=== PATIENT | female | born 1970 | race African-American/Black ===

== ENCOUNTER 2020-07-25 16:43 | Observation (INO) | payer MEDICAID ==
--- NOTE | 2020-07-25 17:22 | ER Document Report ---
ED Medical Screen (RME) - General Chief Complaint: Chest Pain Stated Complaint: CHEST PAIN Time Seen by Provider: 07/25/20 17:06 Mode of Arrival: Wheelchair Information source: Patient Notes: 50-year-old female presented to ED for complaint of chest pain that was a 5 out of 5 earlier. She states it was very tight with soreness to the left wrist. She states at first she thought she was having stroke symptoms. She states she was arguing with her daughters outside and then went inside and then she and her significant other went to the battery place. While she was there her chest got extremely tight. She came into the emergency room stating that she was having a stroke symptoms because she had had a stroke a year ago. When I asked her what she was here for she stated she was having chest pain.. Later when I saw her in the triage room she states the pain was better it was now a 3 out of 5. She was able to converse much easier. She was much more alert. I have ordered blood ur ine chest x-ray and monitoring. I have greeted and performed a rapid initial assessment of this patient. A comprehensive ED assessment and evaluation of the patient, analysis of test results and completion of medical decision making process will be conducted by an additional ED providers. - Related Data Allergies/Adverse Reactions: No Known Allergies Allergy (Verified 07/25/20 17:06) Home Medications: BP meds Past Medical History - Social History Frequency of alcohol use: None Drug Abuse: None Physical Exam - Vital signs Vitals: Temp Pulse Resp BP Pulse Ox 99.5 F 88 18 153/95 H 96 07/25/20 16:58 07/25/20 16:58 07/25/20 16:58 07/25/20 16:58 07/25/20 16:58 Course - Vital Signs Vital signs: Temp Pulse Resp BP Pulse Ox 99.5 F 88 18 153/95 H 96 07/25/20 16:58 07/25/20 16:58 07/25/20 16:58 07/25/20 16:58 07/25/20 16:58
[2020-07-25 17:41] LABS: ABSOLUTE BASOPHILS # (AUTO) 0.1 10^3/uL (0.0-0.2); ABSOLUTE EOSINOPHILS # (AUTO) 0.1 10^3/uL (0.0-0.6); ABSOLUTE LYMPHOCYTES (AUTO) 1.9 10^3/uL (0.5-4.7); ABSOLUTE MONOCYTES (AUTO) 0.7 10^3/uL (0.1-1.4); BASOPHILS % (AUTO) 0.6 % (0-2); EOSINOPHILS % (AUTO) 0.7 % (0-6); HEMATOCRIT 29.6 % (36.0-47.0); HEMOGLOBIN 9.2 g/dL (12.0-15.5); LYMPHOCYTES % (AUTO) 17.9 % (13-45); MEAN CORPUSCULAR HEMOGLOBIN 20.4 pg (27.0-33.4); MEAN CORPUSCULAR VOLUME 66 fl (80-97); MONOCYTES % (AUTO) 6.1 % (3-13); PLATELET COUNT 398 10^3/uL (150-450); RED BLOOD COUNT 4.48 10^6/uL (3.72-5.28); RED CELL DISTRIBUTION WIDTH 19.8 % (11.5-14.0); SEGMENTED NEUTROPHILS % (AUTO) 74.7 % (42-78); TOTAL CELLS COUNTED % (AUTO) 100 %; WHITE BLOOD COUNT 10.7 10^3/uL (4.0-10.5)
--- NOTE | 2020-07-25 17:50 | RADIOLOGY REPORT (SQ) ---
EXAM DESCRIPTION: CHEST 2 VIEWS IMAGES COMPLETED DATE/TIME: 07/25/2020 5:42 pm REASON FOR STUDY: chest pain COMPARISON: None. EXAM PARAMETERS: NUMBER OF VIEWS: two views TECHNIQUE: Digital Frontal and Lateral radiographic views of the chest acquired. RADIATION DOSE: NA LIMITATIONS: none FINDINGS: LUNGS AND PLEURA: No opacities, masses or pneumothorax. No pleural effusion. MEDIASTINUM AND HILAR STRUCTURES: No masses or contour abnormalities. HEART AND VASCULAR STRUCTURES: Cardiomegaly. No evidence for failure. BONES: Mild dextroconvex scoliosis thoracic spine. HARDWARE: None in the chest. OTHER: No other significant finding. IMPRESSION: 1. No acute pulmonary findings. 2. Cardiomegaly. No evidence for failure. TECHNICAL DOCUMENTATION: JOB ID: [id number] 2010 [employer]- All Rights Reserved Reading location - IP/workstation name: [email or web address]
[2020-07-25 17:51] LABS: APPEARANCE,URINE SLIGHTLY-CLOUDY; BILIRUBIN,URINE NEGATIVE (NEGATIVE); COLOR,URINE YELLOW; GLUCOSE, URINE NEGATIVE (NEGATIVE); INTERNATIONAL RATION (INR) 0.95; KETONES,URINE NEGATIVE (NEGATIVE); LEUKOCYTE ESTERASE,URINE NEGATIVE (NEGATIVE); NITRITE,URINE NEGATIVE (NEGATIVE); PROTEIN,URINE 30 mg/dL (NEGATIVE); PROTHROMBIN TIME 12.8 SEC (11.4-15.4); URINE SPECIFIC GRAVITY 1.017; UROBILINOGEN,URINE NEGATIVE mg/dL (<2.0)
[2020-07-25 17:52] LABS: PARTIAL THROMBOPLASTIN TIME 29.4 SEC (23.5-35.8)
[2020-07-25 18:16] LABS: ALBUMIN 4.2 g/dL (3.5-5.0); ALKALINE PHOSPHATASE 74 U/L (38-126); ANION GAP 8 (5-19); ASPARTATE AMINO TRANSFERASE 18 U/L (14-36); BILIRUBIN,DIRECT 0.2 mg/dL (0.0-0.4); BILIRUBIN,TOTAL 0.5 mg/dL (0.2-1.3); BLOOD UREA NITROGEN 13 mg/dL (7-20); CALCIUM 9.8 mg/dL (8.4-10.2); CARBON DIOXIDE 32 mmol/L (22-30); CHLORIDE 99 mmol/L (98-107); CREATINE KINASE 96 U/L (30-135); GLUCOSE 101 mg/dL (75-110); POTASSIUM 3.3 mmol/L (3.6-5.0); TOTAL PROTEIN 7.3 g/dL (6.3-8.2)
[2020-07-25 21:04] LABS: URINE AMPHETAMINES SCREEN NEGATIVE; URINE BARBITURATES SCREEN NEGATIVE; URINE BENZODIAZEPINES SCREEN NEGATIVE; URINE COCAINE SCREEN NEGATIVE; URINE MARIJUANA (THC) SCREEN NEGATIVE; URINE METHADONE SCREEN NEGATIVE; URINE PHENCYCLIDINE SCREEN NEGATIVE
--- NOTE | 2020-07-25 21:05 | ER Document Report ---
ED Cardiac - General Chief Complaint: Chest Pain Stated Complaint: CHEST PAIN Time Seen by Provider: 07/25/20 17:06 Mode of Arrival: Wheelchair - HPI Patient complains to provider of: Chest tightness Was the onset of pain: Sudden Quality of pain: Tightness Chest pain radiation location: Left arm Severity now: None Cardiac risk factors: Hypertension, + Family history Positive cardiac history: No Associated symptoms: Headache, Lightheaded. denies: Abdominal pain, Back pain, Weakness Exacerbated by: Denies Relieved by: Nothing Similar symptoms previously: Yes Notes: Patient is a 50-year-old female with a past medical history of CVA and hypertension who presents with chest pain. Patient states she has had intermittent chest pain for several days. Today, she was arguing with her family member and developed chest pain again. She states today it was worse and felt like pressure. She had some pain radiating to her left arm. She denies any nausea or vomiting. No abdominal pain. States that she is from [place] and drove here several days ago. She has never had a blood clot. - Related Data Allergies/Adverse Reactions: No Known Allergies Allergy (Verified 07/25/20 17:06) Home Medications: BP meds Past Medical History - General Information source: Patient - Social History Smoking Status: Never Smoker Frequency of alcohol use: None Drug Abuse: None Family History: Reviewed & Not Pertinent Review of Systems - Review of Systems Notes: CONSTITUTIONAL: No fever, fatigue or weight loss. SKIN: No rash. HENT: No congestion, ear pain, or sore throat. EYES: No recent vision problems or eye pain. ENDOCRINE: No thyroid problems. No polyuria or polydipsia. CARDIOVASCULAR: Positive for chest pain RESPIRATORY: No cough, shortness of breath, congestion, or wheezing. GASTROINTESTINAL: No abdominal pain, nausea, vomiting, bloody stools or diarrhea. GENITOURINARY: No dysuria. MUSCULOSKELETAL: No joint pain or swelling. LYMPHATIC: No swollen glands. NEUROLOGIC: No seizures. No headache, focal weakness or sensory changes. HEMATOLOGIC: No unusual bruising or bleeding. PSYCHIATRIC: No depression or anxiety. Physical Exam - Vital signs Vitals: Temp Pulse Resp BP Pulse Ox 99.5 F 88 18 153/95 H 96 07/25/20 16:58 07/25/20 16:58 07/25/20 16:58 07/25/20 16:58 07/25/20 16:58 - Notes Notes: VITAL SIGNS: Within normal limits. GENERAL: No acute distress, non-toxic appearance. HEAD: Normal with no signs of head trauma. EYES: PERRLA, EOMI, conjunctiva normal, no discharge. EARS: Hearing grossly intact. NOSE: Normal. THROAT: Oropharynx is normal. NECK: Normal range of motion, no tenderness, supple, no lymphadenopathy, No ad enopathy, no JVD. CHEST: Clear breath sounds bilaterally. No wheezes, rales, or rhonchi. CARDIAC: Regular rate and rhythm. S1 and S2, without murmurs, gallops, or rubs. VASCULAR: No Edema. Peripheral pulses normal. ABDOMEN: Normal and soft with no tenderness, no masses or pulsatile masses. GASTROINTESTINAL: Bowel sounds normal GENITOURINARY: Normal, No tenderness LYMPATHTIC: No lymphadenopathy noted. MUSCULOSKELETAL: Good range of motion of all major joints. Extremities without clubbing, cyanosis or edema. NEUROLOGICAL: Alert and oriented x 3. No focal sensory or strength deficits. Speech normal. Follows commands appropriately. PSYCHIATRIC: Normal Affect, judgement and mood. SKIN: Normal appearance with no rashes or lesions. Course - Re-evaluation Re-evalutation: Heart Score is 4 07/25/20 22:04 07/26/20 01:14 Patient states she had one episode of chest pain again in the ER. Currently she is chest pain-free. Patient was sent for a CTA as she had a mildly elevated d- dimer and traveled recently. Unfortunately, CTA was nondiagnostic. I did discuss this with the patient. Because of her heart score, I did offer her admission to the hospital for cardiac work-up and she was in agreement. Patient was given aspirin and potassium. She will be admitted to the hospitalist. - Vital Signs Vital signs: Temp Pulse Resp BP Pulse Ox 99.5 F 88 19 140/62 H 94 07/25/20 16:58 07/25/20 16:58 07/26/20 00:00 07/25/20 22:32 07/25/20 21:00 - Laboratory Result Diagrams: 07/25/20 17:22 07/25/20 17:22 Laboratory results interpreted by me: 07/25/20 07/25/20 07/25/20 17:22 17:22 17:22 WBC 10.7 H Hgb 9.2 L Hct 29.6 L MCV 66 L MCH 20.4 L MCHC 31.0 L RDW 19.8 H D-Dimer Potassium 3.3 L Carbon Dioxide 32 H Urine Protein 30 H 07/25/20 21:11 WBC Hgb Hct MCV MCH MCHC RDW D-Dimer 0.57 H Potassium Carbon Dioxide Urine Protein - Diagnostic Test Radiology reviewed: Image reviewed, Reports reviewed - EKG Interpretation by Me EKG shows normal: Sinus rhythm Rate: Normal Rhythm: NSR When compared to previous EKG there are: Previous EKG unavailable Additional EKG results interpreted by me: 07/25/20 20:53 EKG interpreted by me. Sinus rhythm at a rate of 80. QTc 425. Acute ST changes. No previous EKG available for comparison. Discharge - Discharge Clinical Impression: Chest pain Qualifiers: Chest pain type: unspecified Qualified Code(s): R07.9 - Chest pain, unspecified Condition: Stable Disposition: ADMITTED OBSERVATION Unit Admitted: Telemetry
--- NOTE | 2020-07-25 23:31 | RADIOLOGY REPORT (SQ) ---
CLINICAL INDICATION: chest pain. . TECHNIQUE: CT arteriography was obtained of the chest with multiplanar MIP and/or 3-D angiographic reconstructions. This exam was performed according to our departmental dose-optimization program, which includes automated exposure control, adjustment of the mA and/or kV according to patient size and/or use of iterative reconstruction techniques. COMPARISON: None. CORRELATION: None. FINDINGS: Nondiagnostic contrast bolus. Average Hounsfield unit measurement within main pulmonary artery segment of 50. Artifact from venous opacification. There is a dilute contrast bolus. This is nondiagnostic for evaluation of pulmonary embolus. Thoracic aorta is of normal caliber. The heart is of normal size. No pericardial effusion. No bulky mediastinal adenopathy. The lungs are grossly clear. No consolidation or edema. No effusion or pneumothorax. Visualized abdominal contents demonstrate hepatic steatosis.. Visualized bones are unremarkable. IMPRESSION: Artifact the patient's arms. Dilute contrast bolus. Study is nondiagnostic for the evaluation of pulmonary embolus. Lungs grossly clear .
[2020-07-25] MEDS ORDERED: ASPIRIN 325 MG TABLET PO ONE (23:51)
[2020-07-25] MEDS ORDERED: POTASSIUM CHLORIDE 10 MEQ TABLET.ER PO ONE (23:53)
[2020-07-26] MEDS ORDERED: ATORVASTATIN CALCIUM 40 MG TABLET PO ONE (00:31)
[2020-07-26] MEDS ORDERED: MAG HYDROX/AL HYDROX/SIMETH SUSP 30 ML UDCUP PO PRN (00:35)
[2020-07-26] MEDS ORDERED: PROMETHAZINE HCL INJ 25 MG/1 ML VIAL IV PRN (00:35)
[2020-07-26] MEDS ORDERED: ACETAMINOPHEN 325 MG TABLET PO PRN (00:35)
[2020-07-26] MEDS ORDERED: MAGNESIUM HYDROXIDE SUSP 30 ML UDCUP PO PRN (00:35)
[2020-07-26] MEDS ORDERED: TRAMADOL HCL 50 MG TABLET PO PRN (00:39)
[2020-07-26] MEDS ORDERED: LORAZEPAM 1 MG TABLET PO PRN (00:39)
[2020-07-26] MEDS ORDERED: NITROGLYCERIN 0.4 MG/TAB 25 TAB/BOTTLE SL PRN (00:39)
[2020-07-26] MEDS ORDERED: ATORVASTATIN CALCIUM 20 MG TABLET ONE (00:44)
--- NOTE | 2020-07-26 00:51 | PDOC H&P ---
History of Present Illness Admission Date/PCP: 07/26/20 00:27 Patient complains of: Chest pain History of Present Illness: ZAINAB MELTON is a 50 year old female with a BMI of 49.6 who reports chest discomfort over the last several days. The episodes tended to last mere minutes and resolved on their own. Today's episode was noticeably more severe. The chest pressure was central. She does not report that it radiates to the neck, jaw or left arm. She states that she felt palpitations, lightheaded, dizziness and short of breath but was not diaphoretic or nauseated. She has no history of coronary disease but she does have hypertension and obesity as risk factors plus there is a positive family history of heart failure. EKG was unremarkable. She is currently pain-free. She did receive aspirin therapy but no statin or nitroglycerin that I can discern by reviewing the order history. Her evaluation is remarkable for hemoglobin of only 9.2 with an MCV of 66. She does report chewing ice for some time now. She has not noticed any bright red blood in her stool. She is experiencing stress with an underlying history of depression. She is in town visiting family. Relations with her daughter and future son-in-law are somewhat strained at this time. She will be admitted and monitored on telemetry. A series of 3 troponins will be obtained. The first 2 are undetectable. EKG was unremarkable. We will check lipid panel as well as iron studies. Past Medical History Cardiac Medical History: Reports: Hypertension Pulmonary Medical History: Reports: Asthma Neurological Medical History: Denies: Ischemic CVA Endocrine Medical History: Denies: Diabetes Mellitus Type 2, Hypothyroidism Renal/ Medical History: Denies: Chronic Kidney Disease Malignancy Medical History: Reports: None GI Medical History: Denies: Cirrhosis, Peptic Ulcer Disease Musculoskeltal Medical History: Reports: Arthritis - Rheumatoid and osteo- Skin Medical History: Reports: None Psychiatric Medical History: Reports: Depression Denies: Alcohol Dependency, Substance Abuse, Tobacco Dependency Infectious Medical History: Denies: Clostridium Difficile, Hepatitis B, Hepatitis C Past Surgical History Past Surgical History: Reports: None Social History Information Source: Patient Lives with: Spouse/Significant other - is at the bedside Smoking Status: Never Smoker Electronic Cigarette use?: No Frequency of Alcohol Use: None Hx Recreational Drug Use: No Hx Prescription Drug Abuse: No - Advance Directive Resuscitation Status: Full Code Surrogate healthcare decision maker:: The patient's is the designated decision maker Family History Family History: Malignancy, Other - Heart failure Parental Family History Reviewed: Yes Children Family History Reviewed: Yes Sibling(s) Family History Reviewed.: Yes Medication/Allergy Allergies/Adverse Reactions: No Known Allergies Allergy (Verified 07/25/20 17:06) Review of Systems All systems: reviewed and no additional remarkable complaints except as stated Constitutional: PRESENT: fatigue Cardiovascular: PRESENT: edema - Actually better today Musculoskeletal: PRESENT: other - Polyarthralgias including knees and hips Psychiatric: PRESENT: anxiety, depression Hematologic/Lymphatic: PRESENT: other - Has been constantly chewing ice for many weeks Physical Exam Vital Signs: Temp Pulse Resp BP Pulse Ox 99.5 F 88 19 140/62 H 94 07/25/20 16:58 07/25/20 16:58 07/26/20 00:00 07/25/20 22:32 07/25/20 21:00 Intake & Output 07/24/20 07/25/20 07/26/20 06:59 06:59 06:59 Weight 123.1 kg General appearance: PRESENT: cooperative, mild distress, morbidly obese, well- developed, well-nourished Head exam: PRESENT: atraumatic, normocephalic, other - Pigmented lesion on the tip of her nose Eye exam: PRESENT: conjunctiva pale, EOMI. ABSENT: scleral icterus Ear exam: PRESENT: normal external ear exam. ABSENT: bleeding, drainage Mouth exam: PRESENT: moist, tongue midline Neck exam: ABSENT: carotid bruit, JVD, lymphadenopathy Respiratory exam: PRESENT: clear to auscultation dali. ABSENT: rales, rhonchi, tachypnea, wheezes Cardiovascular exam: PRESENT: RRR, +S1, +S2, other - Decreased heart sounds due to body habitus GI/Abdominal exam: PRESENT: diminished bowel sounds, soft, other - Protuberant abdomen. ABSENT: guarding, tenderness Rectal exam: PRESENT: deferred Gentrourinary exam: ABSENT: indwelling catheter Extremities exam: ABSENT: pedal edema Musculoskeletal exam: PRESENT: ambulatory, normal inspection Neurological exam: PRESENT: alert, awake, oriented to person, oriented to place, oriented to time, oriented to situation, CN II-XII grossly intact. ABSENT: altered Psychiatric exam: PRESENT: anxious, appropriate affect. ABSENT: agitated Focused psych exam: ABSENT: delusional, paranoid, restlessness Skin exam: PRESENT: dry, normal color, warm. ABSENT: rash Results Laboratory Results: 07/25/20 17:22 07/25/20 17:22 07/25/20 07/25/20 07/25/20 17:22 17:22 17:22 WBC 10.7 H RBC 4.48 Hgb 9.2 L Hct 29.6 L MCV 66 L MCH 20.4 L MCHC 31.0 L RDW 19.8 H Plt Count 398 Seg Neutrophils % 74.7 Sodium 139.4 Potassium 3.3 L Chloride 99 Carbon Dioxide 32 H Anion Gap 8 BUN 13 Creatinine 0.78 Est GFR ( Amer) > 60 Glucose 101 Calcium 9.8 Magnesium 1.8 Total Bilirubin 0.5 AST 18 Alkaline Phosphatase 74 Total Protein 7.3 Albumin 4.2 Serum HCG, Qual NEGATIVE Urine Color Urine Appearance Urine pH Ur Specific [place] Urine Protein Urine Glucose (UA) Urine Ketones Urine Blood Urine Nitrite Ur Leukocyte Esterase Urine WBC (Auto) Urine RBC (Auto) 07/25/20 17:22 WBC RBC Hgb Hct MCV MCH MCHC RDW Plt Count Seg Neutrophils % Sodium Potassium Chloride Carbon Dioxide Anion Gap BUN Creatinine Est GFR ( Amer) Glucose Calcium Magnesium Total Bilirubin AST Alkaline Phosphatase Total Protein Albumin Serum HCG, Qual Urine Color YELLOW Urine Appearance SLIGHTLY-CLOUDY Urine pH 7.0 Ur Specific [place] 1.017 Urine Protein 30 H Urine Glucose (UA) NEGATIVE Urine Ketones NEGATIVE Urine Blood NEGATIVE Urine Nitrite NEGATIVE Ur Leukocyte Esterase NEGATIVE Urine WBC (Auto) 1 Urine RBC (Auto) 3 07/25/20 07/25/20 07/25/20 17:22 17:22 21:11 Creatine Kinase 96 Troponin I < 0.012 < 0.012 Impressions: Chest X-Ray 07/25/20 17:13 IMPRESSION: 1. No acute pulmonary findings. 2. Cardiomegaly. No evidence for failure. Chest/Abdomen CTA 07/25/20 22:03 IMPRESSION: Artifact the patient's arms. Dilute contrast bolus. Study is nondiagnostic for the evaluation of pulmonary embolus. Lungs grossly clear . Assessment and Plan - Diagnosis (1) Chest pain Qualifiers: Chest pain type: unspecified Qualified Code(s): R07.9 - Chest pain, unspecified Is this a current diagnosis for this admission?: Yes Plan: The patient has 2- troponins. EKG was unremarkable. And it is likely that this chest pain is noncardiac but will complete rule out admission to be sure. She is under a lot of stress and this certainly could be contributing. Her risk factors do include family history, morbid obesity and hypertension. Also she is anemic and this could be putting some strain on the heart. Aspirin and statin therapy have been ordered as well as sublingual nitroglycerin if needed. (2) Hypertension Qualifiers: Hypertension type: essential hypertension Qualified Code(s): I10 - Essential (primary) hypertension Is this a current diagnosis for this admission?: Yes Plan: The patient takes hydrochlorothiazide 25 mg daily. Will monitor vital signs. Adjust medications to keep systolic blood pressure less than 140. (3) Anemia Qualifiers: Anemia type: iron deficiency Iron deficiency anemia type: unspecified iron deficiency Qualified Code(s): D50.9 - Iron deficiency anemia, unspecified Is this a current diagnosis for this admission?: Yes Plan: The patient's hemoglobin is 9.2. MCV is only 66. She has been chewing ice for some time. I have ordered anemia studies for the morning. (4) Hypokalemia Is this a current diagnosis for this admission?: Yes Plan: Serum potassium is only 3.3. Oral potassium given in the ED and potassium chloride has been ordered each morning. Repeat electrolytes in the morning. (5) Depression Qualifiers: Depression Type: unspecified Qualified Code(s): F32.9 - Major depressive disorder, single episode, unspecified Is this a current diagnosis for this admission?: Yes Plan: Continue Cymbalta. Lorazepam as needed for anxiety. 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 She is not on any anti-inflammatories. She has tramadol for pain. Continue tramadol. No further work-up during this admission. (7) Rheumatoid arthritis Qualifiers: Rheumatoid arthritis location: multiple sites Rheumatoid factor presence: unspecified presence Qualified Code(s): M06.9 - Rheumatoid arthritis, unspecified Is this a current diagnosis for this admission?: Yes Plan: Patient reports history of rheumatoid arthritis. This is not an acute issue for this admission. We will continue tramadol from her home medication regimen. (8) Polyarthralgia Is this a current diagnosis for this admission?: Yes Plan: Secondary to the arthritic conditions mentioned above (9) Morbid obesity Is this a current diagnosis for this admission?: Yes Plan: BMI is 49.6. This presents an additional risk factor for her heart disease. Encourage aggressive diet management and exercise. - Time Time Spent with patient: 35 or more minutes Medications reviewed and adjusted accordingly: Yes Anticipated Discharge Disposition: Home, Self Care Anticipated Discharge Timeframe: within 48 hours
[2020-07-26] MEDS ORDERED: HEPARIN SOD (PORCINE) 5,000 UNIT/ML 1 ML VIAL SUBCUT SCH (06:00)
[2020-07-26] MEDS ORDERED: FAMOTIDINE 20 MG TABLET PO SCH (10:00)
[2020-07-26] MEDS ORDERED: POTASSIUM CHLORIDE 10 MEQ TABLET.ER PO SCH (10:00)
[2020-07-26] MEDS ORDERED: DULOXETINE HCL 30 MG CAPSULE.DR PO SCH (10:00)
[2020-07-26] MEDS ORDERED: HYDROCHLOROTHIAZIDE 25 MG TABLET PO SCH (10:00)
[2020-07-26 11:05] VITALS: BP 152/93
--- NOTE | 2020-07-26 17:14 | PDOC DISCHARGE SUMMARY ---
Impression - Admit/DC Date/PCP Admission Date/Primary Care Provider: 07/26/20 00:27 Discharge Date: 07/26/20 - Discharge Diagnosis (1) Anxiety Is this a current diagnosis for this admission?: Yes (2) Iron deficiency anemia Is this a current diagnosis for this admission?: Yes (3) Chest pain Is this a current diagnosis for this admission?: Yes (4) Morbid obesity Is this a current diagnosis for this admission?: Yes - Assessment Summary: Ms. Melton is a morbidly obese 50 year old woman with PMH of HTN who presented with a several day history of atypical chest pain. The episodes were associated with stress/anxiety, lasted 1-2 minutes and resolved on their own. This particular episode was more severe and the chest pressure was central. It did not radiate to the neck, jaw or left arm. It was associated with palpitations, lightheadedness, dizziness and shortness of breath but was not diaphoretic or nauseated. She was observed overnight for cardiac rule-out. She had normal EKG, negative troponin x2, normal CXR and no events on telemetry. Her evaluation was notable for microcytic anemia with hemoglobin of 9.2 with an MCV of 66. She denied hematemesis, hematochezia or melena, but does endorse several months' long history of irregular and very heavy periods. She notes that she has been referred for a screening colonoscopy by her PCP due to her age. She has a PCP and OBGYN in [facility], from where she is visiting. She was advised to follow up with her PCP upon return to [place], [place] and to complete her colonoscopy. She was also advised to follow up with OBGYN for work- up of her irregular/heavy periods. She was started on a daily multivitamin with iron. She was recommended to start diet/exercise and to lose weight to decrease her risk of future cardiac events. - Additional Information Resuscitation Status: Full Code Discharge Diet: Regular Discharge Activity: Activity As Tolerated Referrals: oot,pcp [Other] Home Medications: Duloxetine HCl [Cymbalta] 60 mg PO BID 07/26/20 Hydrochlorothiazide [Hydrodiuril 25 mg Tablet] 25 mg PO QAM 07/26/20 Tramadol HCl [Ultram 50 mg Tablet] 50 mg PO QHS 07/26/20 History of Present Illiness History of Present Illness: ZAINAB MELTON is a 50 year old female Physical Exam Vital Signs: Temp Pulse Resp BP Pulse Ox 98.0 F 67 16 152/93 H 98 07/26/20 12:42 07/26/20 12:42 07/26/20 12:42 07/26/20 12:42 07/26/20 12:42 Intake & Output 07/25/20 07/26/20 07/27/20 06:59 06:59 06:59 Intake Total 480 Balance 480 Weight 123.1 kg Results Laboratory Results: WBC 10.7 10^3/uL (4.0-10.5) H 07/25/20 17:22 RBC 4.48 10^6/uL (3.72-5.28) 07/25/20 17:22 Hgb 9.2 g/dL (12.0-15.5) L 07/25/20 17:22 Hct 29.6 % (36.0-47.0) L 07/25/20 17:22 MCV 66 fl (80-97) L 07/25/20 17:22 MCH 20.4 pg (27.0-33.4) L 07/25/20 17:22 MCHC 31.0 g/dL (32.0-36.0) L 07/25/20 17:22 RDW 19.8 % (11.5-14.0) H 07/25/20 17:22 Plt Count 398 10^3/uL (150-450) 07/25/20 17:22 Lymph % (Auto) 17.9 % (13-45) 07/25/20 17:22 [place] % (Auto) 6.1 % (3-13) 07/25/20 17:22 Eos % (Auto) 0.7 % (0-6) 07/25/20 17:22 Baso % (Auto) 0.6 % (0-2) 07/25/20 17:22 Absolute Neuts (auto) 8.0 10^3/uL (1.7-8.2) 07/25/20 17:22 Absolute Lymphs (auto) 1.9 10^3/uL (0.5-4.7) 07/25/20 17:22 Absolute Monos (auto) 0.7 10^3/uL (0.1-1.4) 07/25/20 17:22 Absolute Eos (auto) 0.1 10^3/uL (0.0-0.6) 07/25/20 17:22 Absolute Basos (auto) 0.1 10^3/uL (0.0-0.2) 07/25/20 17:22 Seg Neutrophils % 74.7 % (42-78) 07/25/20 17:22 PT 12.8 SEC (11.4-15.4) 07/25/20 17:22 INR 0.95 07/25/20 17:22 APTT 29.4 SEC (23.5-35.8) 07/25/20 17:22 D-Dimer 0.57 ug/mL (0.00-0.50) H 07/25/20 21:11 Sodium 139.4 mmol/L (137-145) 07/25/20 17:22 Potassium 3.3 mmol/L (3.6-5.0) L 07/25/20 17:22 Chloride 99 mmol/L (98-107) 07/25/20 17:22 Carbon Dioxide 32 mmol/L (22-30) H 07/25/20 17:22 Anion Gap 8 (5-19) 07/25/20 17:22 BUN 13 mg/dL (7-20) 07/25/20 17:22 Creatinine 0.78 mg/dL (0.52-1.25) 07/25/20 17:22 Est GFR ( Amer) > 60 (>60) 07/25/20 17:22 Est GFR (MDRD) Non-Af > 60 (>60) 07/25/20 17:22 Glucose 101 mg/dL (75-110) 07/25/20 17:22 Calcium 9.8 mg/dL (8.4-10.2) 07/25/20 17:22 Magnesium 1.8 mg/dL (1.6-2.3) 07/25/20 17:22 Total Bilirubin 0.5 mg/dL (0.2-1.3) 07/25/20 17:22 Direct Bilirubin 0.2 mg/dL (0.0-0.4) 07/25/20 17:22 Neonat Total Bilirubin Not Reportable 07/25/20 17:22 Neonat Direct Bilirubin Not Reportable 07/25/20 17:22 Neonat Indirect Bili Not Reportable 07/25/20 17:22 AST 18 U/L (14-36) 07/25/20 17:22 ALT 11 U/L (<35) 07/25/20 17:22 Alkaline Phosphatase 74 U/L (38-126) 07/25/20 17:22 Creatine Kinase 96 U/L (30-135) 07/25/20 17:22 Troponin I < 0.012 ng/mL 07/25/20 21:11 Total Protein 7.3 g/dL (6.3-8.2) 07/25/20 17:22 Albumin 4.2 g/dL (3.5-5.0) 07/25/20 17:22 Serum HCG, Qual NEGATIVE (NEGATIVE) 07/25/20 17:22 Urine Color YELLOW 07/25/20 17:22 Urine Appearance SLIGHTLY-CLOUDY 07/25/20 17:22 Urine pH 7.0 (5.0-9.0) 07/25/20 17:22 Ur Specific [place] 1.017 07/25/20 17:22 Urine Protein 30 mg/dL (NEGATIVE) H 07/25/20 17:22 Urine Glucose (UA) NEGATIVE mg/dL (NEGATIVE) 07/25/20 17:22 Urine Ketones NEGATIVE mg/dL (NEGATIVE) 07/25/20 17:22 Urine Blood NEGATIVE (NEGATIVE) 07/25/20 17:22 Urine Nitrite NEGATIVE (NEGATIVE) 07/25/20 17:22 Urine Bilirubin NEGATIVE (NEGATIVE) 07/25/20 17:22 Urine Urobilinogen NEGATIVE mg/dL (<2.0) 07/25/20 17:22 Ur Leukocyte Esterase NEGATIVE (NEGATIVE) 07/25/20 17:22 Urine WBC (Auto) 1 /HPF 07/25/20 17:22 Urine RBC (Auto) 3 /HPF 07/25/20 17:22 U Hyaline Cast (Auto) 6 /LPF 07/25/20 17:22 Squamous Epi Cells Auto 11 /HPF 07/25/20 17:22 Urine Mucus (Auto) FEW /LPF 07/25/20 17:22 Urine Ascorbic Acid NEGATIVE (NEGATIVE) 07/25/20 17:22 Urine Opiates Screen NEGATIVE 07/25/20 17:22 Urine Methadone Screen NEGATIVE 07/25/20 17:22 Ur Barbiturates Screen NEGATIVE 07/25/20 17:22 Ur Phencyclidine Scrn NEGATIVE 07/25/20 17:22 Ur Amphetamines Screen NEGATIVE 07/25/20 17:22 U Benzodiazepines Scrn NEGATIVE 07/25/20 17:22 Urine Cocaine Screen NEGATIVE 07/25/20 17:22 U Marijuana (THC) Screen NEGATIVE 07/25/20 17:22 07/25/20 07/25/20 17:22 21:11 Troponin I < 0.012 < 0.012 Impressions: Chest X-Ray 07/25/20 17:13 IMPRESSION: 1. No acute pulmonary findings. 2. Cardiomegaly. No evidence for failure. Chest/Abdomen CTA 07/25/20 22:03 IMPRESSION: Artifact the patient's arms. Dilute contrast bolus. Study is nondiagnostic for the evaluation of pulmonary embolus. Lungs grossly clear . Stroke Is this a Stroke Patient?: No Acute Heart Failure Is this a Heart Failure Patient?: No
[2020-07-26] MEDS ORDERED: ASPIRIN 81 MG TABLET, ENT COATED PO SCH (22:00)
[2020-07-26] MEDS ORDERED: ATORVASTATIN CALCIUM 40 MG TABLET PO SCH (22:00)
== END 2020-07-26 13:45 | disposition home or self-care (01) ==
LOC: ER 16:43 → EH 07-26 00:27 → 4S 07-26 01:25
PROVIDERS: ADMIT Hospitalist; ATTEND Hospitalist
DX: R07.89 Other chest pain (principal); F41.9 Anxiety disorder, unspecified; D50.9 Iron deficiency anemia, unspecified; E66.01 Morbid (severe) obesity due to excess calories; Z73.3 Stress, not elsewhere classified; N92.1 Excessive and frequent menstruation with irregular cycle; M06.89 Other specified rheumatoid arthritis, multiple sites; M15.8 Other polyosteoarthritis; I10 Essential (primary) hypertension; E87.6 Hypokalemia; F32.9 Major depressive disorder, single episode, unspecified; R60.9 Edema, unspecified; Z68.42 Body mass index [BMI] 45.0-49.9, adult; Z82.49 Family history of ischemic heart disease and other diseases of the circulatory system; Z63.8 Other specified problems related to primary support group; Z79.899 Other long term (current) drug therapy; Z86.73 Personal history of transient ischemic attack (TIA), and cerebral infarction without residual deficits
CPT/HCPCS: 99285; 36415; 87086; 82550; 83735; 84703; 85025; 85610; 85730; 80053; 81001; 84484; 80307; 85379; 71046; 71275; G0378; J1644